=== PATIENT | female | born 1965 | race Two or more races ===

== ENCOUNTER 2017-07-01 21:11 | Emergency (ER) | payer MEDICAID ==
[~2017-07-01] VITALS: Ht 160 cm; Wt 75.7 kg
[2017-07-02 00:17] VITALS: BP 108/66
== END 2017-07-02 03:55 | disposition home or self-care (01) ==
LOC: ER 21:11
DX: J40 Bronchitis, not specified as acute or chronic (principal)

== ENCOUNTER 2018-01-22 12:38 | Emergency (ER) | payer MEDICAID ==
[~2018-01-22] VITALS: Ht 152.4 cm; Wt 72.6 kg
[2018-01-22 14:12] VITALS: BP 147/91
[2018-01-22] MEDS ORDERED: KETOROLAC TROMETH 60MG/2ML VIAL IM ONE (14:15)
== END 2018-01-22 14:57 | disposition home or self-care (01) ==
LOC: ER 12:38 → EDBD 12:38 → ER 14:57
DX: S16.1XXA Strain of muscle, fascia and tendon at neck level, initial encounter (principal); S39.012A Strain of muscle, fascia and tendon of lower back, initial encounter; E11.9 Type 2 diabetes mellitus without complications; E78.5 Hyperlipidemia, unspecified; I10 Essential (primary) hypertension; V49.49XA Driver injured in collision with other motor vehicles in traffic accident, initial encounter; Y93.89 Activity, other specified; Y99.8 Other external cause status; Y92.488 Other paved roadways as the place of occurrence of the external cause
CPT/HCPCS: 70450; 72125; 72131; 96372; 99284; J1885

== ENCOUNTER 2022-02-14 18:26 | Emergency (ER) | payer MEDICAID ==
[2022-02-14] MEDS ORDERED: HYDROcodone-ACET 5/325MG TAB PO ONE (20:00)
[2022-02-14] MEDS ORDERED: predniSONE 20 MG TAB PO ONE (20:00)
[2022-02-14] MEDS ORDERED: PRED1PAK9 PO ×2 (20:09→20:12)
[2022-02-14] MEDS ORDERED: HYDR-4902 PO (20:11)
== END 2022-02-14 20:12 | disposition left against medical advice (07) ==
LOC: ER 18:26
DX: M10.9 Gout, unspecified (principal); I10 Essential (primary) hypertension; E11.9 Type 2 diabetes mellitus without complications; E78.5 Hyperlipidemia, unspecified